=== PATIENT | male | born 1965 | race African-American/Black ===

== ENCOUNTER 2017-10-18 16:06 | Inpatient (IN) | payer OTHER ==
[~2017-10-18] VITALS: Ht 175.3 cm; Wt 141.5 kg
--- NOTE | 2017-10-18 16:29 | NUR ---
ADMISSION NOTE Patient admitted with diagnosis of Abcess on back/ DM. Patient oriented to hospital routine, call light, toileting and safety-patient verbalized understanding.
--- NOTE | 2017-10-18 16:52 | NUR ---
[phone] SPOKE WITH .
[2017-10-18 17:12] VITALS: BP_SYST 150
[2017-10-18] MEDS ORDERED: COMMUNICATION ORDER XX ONE (17:15)
[2017-10-18] MEDS ORDERED: FLU VACC QS 2017-18(36MOS+)/PF 0.5 ML/SYR SYRINGE I.M. PRN (17:30)
[2017-10-18] MEDS ORDERED: ALBUTEROL MDI INHALATION 8 GM INH INH SCH (17:30)
[2017-10-18] MEDS ORDERED: ACETAMINOPHEN 650 MG/20.3 ML UDC PO PRN (17:30)
[2017-10-18] MEDS ORDERED: ROSU10TA PO (17:50)
[2017-10-18] MEDS ORDERED: DULO30CA51 PO (17:50)
[2017-10-18] MEDS ORDERED: VIS50 PO (17:50)
[2017-10-18] MEDS ORDERED: INSU100V9 SUBCUT (17:50)
[2017-10-18] MEDS ORDERED: TRAZ-123 PO (17:50)
[2017-10-18] MEDS ORDERED: SILD100T PO (17:50)
[2017-10-18] MEDS ORDERED: AMLO5TAB4 PO (17:50)
[2017-10-18] MEDS ORDERED: CAT.1 PO (17:50)
[2017-10-18] MEDS ORDERED: UBID200C32 PO (17:50)
[2017-10-18] MEDS ORDERED: MULT PO (17:50)
[2017-10-18] MEDS ORDERED: ASPI-1063 PO (17:50)
[2017-10-18] MEDS ORDERED: CHOL200026 PO (17:50)
[2017-10-18] MEDS ORDERED: METO50TA7 PO (17:50)
[2017-10-18] MEDS ORDERED: NEU300 PO (17:50)
[2017-10-18] MEDS ORDERED: TYLL650 PO (17:50)
[2017-10-18] MEDS ORDERED: LOSA100T11 PO (17:50)
[2017-10-18] MEDS ORDERED: ALBU8.5H8 INH (17:50)
[2017-10-18] MEDS ORDERED: MULT-1055 PO (17:50)
[2017-10-18 17:55] LABS: BASOPHILS # (AUTO) 0.1 K/uL (0.0-0.2); BASOPHILS % (AUTO) 0.8 % (0.0-2.0); EOSINOPHILS # (AUTO) 0.6 K/uL (0.0-0.4); EOSINOPHILS % (AUTO) 5.8 % (0.0-4.0); HEMATOCRIT 45.5 % (36-54); HEMOGLOBIN 14.7 g/dL (14.0-18.0); LYMPHOCYTES # (AUTO) 4.2 K/uL (1.0-5.5); MEAN CORPUSCULAR HEMOGLOBIN 27 pg (27-31); MEAN CORPUSCULAR HGB CONC 32 % (32-36); MEAN CORPUSCULAR VOLUME 82 fL (79.0-98.0); MONOCYTES # (AUTO) 1.1 K/uL (0.0-1.0); MONOCYTES % (AUTO) 9.9 % (1.7-9.3); NEUTROPHILS # (AUTO) 4.7 K/uL (1.8-7.7); NEUTROPHILS % (AUTO) 44.5 % (40.0-70.0); PLATELET COUNT (AUTO) 433 K/uL (130-430); RED BLOOD CELL COUNT(AUTO) 5.55 MIL/uL (4.2-6.2); RED CELL DISTRIBUTION WIDTH 14.2 % (9.0-15.0); WHITE BLOOD COUNT (AUTO) 10.7 K/uL (4.8-10.8)
[2017-10-18] MEDS ORDERED: ACET325C PO (17:55)
[2017-10-18] MEDS ORDERED: TEST75GE TP (18:16)
[2017-10-18 18:20] LABS: CREATININE 1.15 mg/dL (0.55-1.30); POTASSIUM 3.7 mmol/L (3.5-5.1)
[2017-10-18] MEDS ORDERED: ALBUTEROL SULFATE 0.083% 2.5 MG/3 ML VIAL.NEB INH PRN (18:30)
[2017-10-18] MEDS: PIPERACILLIN/TAZOBACTAM 4.5 GM/ D5W 100 ML IV SCH ×2 (18:55)
--- NOTE | 2017-10-18 19:01 | NUR ---
CLOSING NOTE PATIENT RESTING IN BED, IV ANTIBIOTICS CURRENTLY HANGING, ALL NEEDS MET, WILL ENDORSE TO PUBLIC POLICY ANALYST NURSE TO HANG VANCO 19:00 DOSE, WILL ALSO ENDORSE PUBLIC POLICY ANALYST NURSE TO GET WOUND CULTURE, UNABLE TO GET DUE TO WOUND BEING CLEANED PRIOR TO ORDER BEING PUT IN, PATIENT IN STABLE CONDITION, CALL ROLON WITHIN REACH OF PATIENT, SIDE RAILS UP, FALL PRECAUTIONS IN PLACE.
--- NOTE | 2017-10-18 19:21 | NUR ---
RN OPENING NOTE Received report from TAMANNA Selby and TAMANNA Gross. Patient A&O x 4, cooperative. Patient resting in bed. Bed locked at lowest position. Call corey within reach. Re-oriented patient to use of call corey. Peripheral IV noted. Right AC 22 G, patent and benign. No S/S of discomfort, distress or pain noted.
[2017-10-18 19:53] VITALS: BP_SYST 146
[2017-10-18] MEDS: VANCOMYCIN HCL 1,750 MG in NS 250 ML IV SCH (20:05)
[2017-10-18 20:30] VITALS: BP_SYST 146
--- NOTE | 2017-10-18 20:57 | NUR ---
DR. HAIDER PAGED Paged Dr. Haider for orders for patient to take home medications. Patient does not want to take hospital pharmacy provided medications d/t fear of excessive costs.
[2017-10-18] MEDS ORDERED: GABAPENTIN 300 MG CAPSULE PO SCH (21:00)
[2017-10-18] MEDS ORDERED: INSULIN GLARGINE 100 UNITS/ML 10 ML VIAL SUBCUT SCH (21:00)
--- NOTE | 2017-10-18 21:06 | NUR ---
DR. BARGER ORDER TORB for patient to take own home medications.
[2017-10-18] MEDS ORDERED: traZODone HCL 50 MG TABLET (DESYREL) PO ONE (23:00)
[2017-10-19] VITALS (7 sets, daily range): BP systolic 123–141
--- NOTE | 2017-10-19 00:13 | NUR ---
RN ROUNDING Patient sleeping w/ home CPAP machine. No S/S of pain, distress, or discomfort noted.
[2017-10-19] MEDS: PIPERACILLIN/TAZOBACTAM 4.5 GM/ D5W 100 ML IV SCH ×10 (00:56→23:48)
--- NOTE | 2017-10-19 04:46 | NUR ---
RN ROUNDING Patient sleeping in bed w/ home CPAP machine. No C/O discomfort or distress noted.
[2017-10-19] MEDS: VANCOMYCIN HCL 1,750 MG in NS 250 ML IV SCH ×2 (06:16→20:44)
[2017-10-19] MEDS: INSULIN ASPART 100 UNITS/ML, 10 ML VIAL (NovoLOG) SUBCUT PRN ×3 (06:22→21:01)
--- NOTE | 2017-10-19 06:57 | NUR ---
RN CLOSING NOTE Patient A&O x 4, cooperative. Patient sleeping in bed but easily awoken by name or light stimuli. Bed locked at lowest position. Call corey within reach. Peripheral IV noted. Right AC 22 G, patent and benign. No S/S of discomfort, distress or pain noted. Wound culture of upper posterior abscess site taken and clean optifoam dressing placed. No drainage noted from site. Last AccuCheck, 177. Covered w/ 2 units of Novolog. Patient comfortable and sleeping w/ home CPAP machine.
--- NOTE | 2017-10-19 08:00 | NUR ---
RN ROUNDS PT RESTING IN BED, A/O X4 AND SPEAKS SPANISH. VS STABLE ON ROOM AIR, NO COMPLAINT OF PAIN. PT STATED CONCERN REGARDING THE COST OF THE MEDICATION PRESCRIBED, MD ORDERS ON ON FILE TO ALLOW HIM TO USE HIS HOME MEDS IF COMPATIBLE.
[2017-10-19] MEDS ORDERED: METOPROLOL SUCCINATE 50 MG TAB.SR.24H (TOPROL XL) PO SCH (09:00)
[2017-10-19] MEDS: ASPIRIN 81 MG TABLET(ECOTRIN) PO SCH (09:00)
[2017-10-19] MEDS: ATORVASTATIN 20 MG TABLET PO SCH (09:00)
[2017-10-19] MEDS: CHOLECALCIFEROL (VITAMIN D3) 2,000 UNIT TABLET PO SCH (09:00)
[2017-10-19] MEDS ORDERED: amLODIPine BESYLATE 5 MG TABLET PO SCH (09:00)
[2017-10-19] MEDS: LOSARTAN POTASSIUM 50 MG TABLET (COZAAR) PO SCH (09:00)
[2017-10-19] MEDS ORDERED: ROSUVASTATIN CALCIUM 5 MG/TAB (CRESTOR) PO SCH (09:00)
[2017-10-19] MEDS: cloNIDine HCL 0.1 MG TABLET PO SCH (09:00)
[2017-10-19] MEDS: MULTIVITAMINS TAB 1 TABLET PO SCH (09:00)
[2017-10-19] MEDS: DULoxetine HCL 30 MG CAPSULE.DR (CYMBALTA) PO SCH (09:00)
[2017-10-19] MEDS ORDERED: COMMUNICATION ORDER XX ONE (10:30)
--- NOTE | 2017-10-19 11:26 | NUR ---
AM MEDS DELAYED PER PT'S REQUEST PT WANTS TO KNOW THE COST OF EACH MED AND ALSO WANTS TO SUBSTITUTE HIS HOME MEDS FOR ANY COMPATIBLE MED PRESCRIBED DURING HIS HOSPITAL STAY. MEDS REFUSED UNTIL CLARIFICATION.
[2017-10-19] MEDS ORDERED: GABAPENTIN 300 MG CAPSULE PO ONE (12:00)
[2017-10-19] MEDS ORDERED: AMLODIPINE 5 MG TABLET PO ONE (12:00)
[2017-10-19] MEDS ORDERED: METOPROLOL SUCCINATE 50 MG PO ONE (12:15)
--- NOTE | 2017-10-19 12:45 | NUR ---
WOUND EVALUATION: Late note for 1245 secondary to patient care. Wound Consult received from Dr. Kurtis Cano. Thank you, Dr. Cano, for the consult. Patient received in a Ioana Bed with a mattress, awake, alert, and oriented. Patient is unable to turn independently. Shahriar Score is a 23. Past Medical History: Diabetes Mellitus, Abscess on back, prior abscess in Gluteal Sulcus area, probable Obstructive Sleep Apnea (has home CPAP). Recent Labs: WBC 10.7, RBC 5.55, hemoglobin 14.7, hematocrit 45.5, BUN 9, creatinine 1.15, GFR low, glucose 130. Intrinsic factors that delay wound healing: Diabetes mellitus. Extrinsic factors that delay wound healing: Decreased mobility. Microbiology: Blood culture results 2 in progress. Back abscess culture in progress. Wound Assessment: 1. Left Upper Back Abscess, present on admission. Abscess site (status post incision and drainage) incision is closed with 6 sutures, but has a small open area mid incision with mod sanguineous drainage draining, measuring 0.6 cm x 0.2 cm. Wound bed tissue is not visible. No odor. Nancie-wound intact. Recommend: Cleanse site with normal saline. Pat dry. Apply SurePrep to nancie-wound. Place alginate dressing over site. Cover with foam dressing. Perform wound care daily, and as needed for dressing soiling or dislodgement. Also recommend: Encourage and assist patient as needed with repositioning side to side only 2 hours with pillow support. Encourage patient not to lie flat on his back. Addendum: 10/19/17 at 1828 by Wyatt Sandoval RN Error, abscess has 10 sutures.
--- NOTE | 2017-10-19 12:45 | NUR ---
WOUND CARE ASSISTED WOUND CARE NURSE ROMAINE WITH CLEANING, MEASURING AND REDRESSING BACK WOUND
--- NOTE | 2017-10-19 13:30 | NUR ---
RN ROUNDS PT SITTING UP IN BED SPEAKING WITH HIS WHO IS AT BEDSIDE. PT STATED HE TOLERATED HIS LUNCH WELL WITH NO COMPLAINT OF PAIN.
[2017-10-19] MEDS: AMLODIPINE 5 MG TABLET PO SCH (13:37)
[2017-10-19] MEDS: TRAZODONE 50 MG TABLET PO SCH (13:38)
--- NOTE | 2017-10-19 15:00 | NUR ---
DR. BARGER AT BEDSIDE NEW ORDERS RECEIVED
--- NOTE | 2017-10-19 15:01 | NUR ---
PT OK TO SHOWER PRN DR. BARGER ENTERED ORDER TO ALLOW PT TO SHOWER. PT UPDATED AND PROVIDED SAFETY EDUCATION.
[2017-10-19] MEDS ORDERED: FLUCONAZOLE 200 MG TABLET (DIFLUCAN) PO ONE (15:15)
--- NOTE | 2017-10-19 17:00 | NUR ---
RN ROUNDS PT SITTING UP IN BED WATCHING A MOVIE ON HIS LAPTOP, AT BEDSIDE. NO COMPLAINT OF DISCOMFORT.
--- NOTE | 2017-10-19 19:00 | NUR ---
RN CLOSING NOTE PT SITTING UP IN BED WATCHING TV WITH HIS , WHO IS AT BEDSIDE. PT STATED ALL NEEDS HAVE BEEN MET DURING SHIFT, BUT HE ASKED THE PM NURSE IF HE COULD BE ESCORTED OUTSIDE TO SMOKE. REPORT ENDORSED TO TAMANNA BLOCK AT BEDSIDE.
[2017-10-19] MEDS: GABAPENTIN 300 MG CAPSULE PO SCH (20:46)
[2017-10-19] MEDS: DIPHENHYDRAMINE HCL/ZINC ACET 28.3 GM CREAM.GM. TP SCH (20:48)
[2017-10-19] MEDS: CLOTRIMAZOLE/BETAMET DIPROP 15 GM TUBE TP SCH (20:49)
[2017-10-19] MEDS ORDERED: traZODone HCL 50 MG TABLET (DESYREL) PO SCH (21:00)
[2017-10-19] MEDS ORDERED: CLOTRIMAZOLE 1% TOPICAL CREAM 15 GM TP SCH (21:00)
[2017-10-20 00:15] VITALS: BP_SYST 142
[2017-10-20 05:07] VITALS: BP_SYST 128
[2017-10-20] MEDS: PIPERACILLIN/TAZOBACTAM 4.5 GM/ D5W 100 ML IV SCH ×8 (06:23→23:34)
[2017-10-20] MEDS ORDERED: VANCOMYCIN HCL 1000 MG/VIAL IV ONE (06:25)
[2017-10-20] MEDS: INSULIN ASPART 100 UNITS/ML, 10 ML VIAL (NovoLOG) SUBCUT PRN ×4 (06:33→21:36)
[2017-10-20] MEDS: VANCOMYCIN HCL 1,750 MG in NS 250 ML IV SCH ×2 (06:41→18:05)
--- NOTE | 2017-10-20 07:36 | NUR ---
AM ROUNDS: No s/s of distress noted. Will continue to monitor.
[2017-10-20 08:23] VITALS: BP_SYST 119
[2017-10-20] MEDS: GABAPENTIN 300 MG CAPSULE PO SCH ×2 (08:24→21:33)
[2017-10-20] MEDS: METOPROLOL SUCCINATE 50 MG PO SCH (08:25)
[2017-10-20] MEDS: AMLODIPINE 5 MG TABLET PO SCH (08:26)
[2017-10-20] MEDS: DIPHENHYDRAMINE HCL/ZINC ACET 28.3 GM CREAM.GM. TP SCH ×3 (08:27→21:39)
[2017-10-20] MEDS: CLOTRIMAZOLE/BETAMET DIPROP 15 GM TUBE TP SCH ×2 (08:28→21:39)
[2017-10-20] MEDS: DULoxetine HCL 30 MG CAPSULE.DR (CYMBALTA) PO SCH (08:30)
[2017-10-20] MEDS: cloNIDine HCL 0.1 MG TABLET PO SCH (08:32)
[2017-10-20] MEDS: LOSARTAN POTASSIUM 50 MG TABLET (COZAAR) PO SCH (08:33)
[2017-10-20] MEDS: ATORVASTATIN 20 MG TABLET PO SCH (08:33)
[2017-10-20] MEDS: MULTIVITAMINS TAB 1 TABLET PO SCH (08:33)
[2017-10-20] MEDS: FLUCONAZOLE 200 MG TABLET (DIFLUCAN) PO SCH (08:33)
[2017-10-20] MEDS: ASPIRIN 81 MG TABLET(ECOTRIN) PO SCH (08:33)
[2017-10-20] MEDS: CHOLECALCIFEROL (VITAMIN D3) 2,000 UNIT TABLET PO SCH (08:33)
--- NOTE | 2017-10-20 10:07 | NUR ---
PATIENT RESTING: Patient resting quietly. No acute distress noted. Will continue to monitor.
[2017-10-20 11:35] VITALS: BP_SYST 133
--- NOTE | 2017-10-20 12:07 | NUR ---
PATIENT RESTING: Patient resting quietly. No acute distress noted. Will continue to monitor.
--- NOTE | 2017-10-20 14:35 | NUR ---
Dietitian Recommendation *Recommend CCHO 2gm Na diet.
[2017-10-20 15:16] VITALS: BP_SYST 147
--- NOTE | 2017-10-20 16:09 | NUR ---
PATIENT RESTING: Patient resting quietly. No acute distress noted. Will continue to monitor.
--- NOTE | 2017-10-20 18:09 | NUR ---
CLOSING NOTE: All needs met. No change in assessment. Will endorse to NOC shift nurse.
[2017-10-20 20:00] VITALS: BP_SYST 134
--- NOTE | 2017-10-20 20:07 | NUR ---
PM Opening Notes Received patient on bed awake, alert and verbally responsive with at bedside watching movie on his laptop at this time. No sign of respiratory distress and no complain of pain or discomfort at this time. IV site on left hand is intact with no s/sx. of infiltration at this time. Will continue to monitor. Call light within reach.
[2017-10-20] MEDS: TRAZODONE 50 MG TABLET PO SCH (21:32)
[2017-10-21] VITALS (7 sets, daily range): BP systolic 114–135
--- NOTE | 2017-10-21 00:05 | NUR ---
Rounds Notes Patient on bed sleeping with no sign of respiratory distress and no complain of pain at this time. IV ATB infusing well. Will continue to monitor. Call light within reach.
--- NOTE | 2017-10-21 04:34 | NUR ---
Rounds Notes Patient on bed sleeping with no sign of respiratory distress and no complain of pain at this time. Will continue to monitor. Call light within reach.
[2017-10-21] MEDS: PIPERACILLIN/TAZOBACTAM 4.5 GM/ D5W 100 ML IV SCH ×6 (05:13→17:09)
[2017-10-21 06:20] LABS: BASOPHILS # (AUTO) 0.1 K/uL (0.0-0.2); BASOPHILS % (AUTO) 0.8 % (0.0-2.0); EOSINOPHILS # (AUTO) 0.3 K/uL (0.0-0.4); EOSINOPHILS % (AUTO) 3.5 % (0.0-4.0); HEMATOCRIT 41.8 % (36-54); HEMOGLOBIN 13.7 g/dL (14.0-18.0); LYMPHOCYTES # (AUTO) 2.6 K/uL (1.0-5.5); MEAN CORPUSCULAR HEMOGLOBIN 27 pg (27-31); MEAN CORPUSCULAR HGB CONC 33 % (32-36); MEAN CORPUSCULAR VOLUME 82 fL (79.0-98.0); MONOCYTES # (AUTO) 0.8 K/uL (0.0-1.0); MONOCYTES % (AUTO) 8.2 % (1.7-9.3); NEUTROPHILS # (AUTO) 5.4 K/uL (1.8-7.7); NEUTROPHILS % (AUTO) 59.5 % (40.0-70.0); PLATELET COUNT (AUTO) 370 K/uL (130-430); RED CELL DISTRIBUTION WIDTH 14.1 % (9.0-15.0); WHITE BLOOD COUNT (AUTO) 9.2 K/uL (4.8-10.8)
[2017-10-21] MEDS: VANCOMYCIN HCL 1,750 MG in NS 250 ML IV SCH (06:28)
[2017-10-21] MEDS: INSULIN ASPART 100 UNITS/ML, 10 ML VIAL (NovoLOG) SUBCUT PRN ×3 (06:30→17:06)
--- NOTE | 2017-10-21 06:45 | NUR ---
pt.presents stable status,pt.is independent w/ adl's.pt.presents aloc x4.pt.ambulatory. pt.presents active smoking hx.pt.requested accompaniment to patio to smoke.i accompanied the pt.in company w/ to patio. estimated time was approximately 20mins outside.pt.was accompanied to return room safely.pt.presents infiltrated iv access i re established iv site:location:,.hand:24g.i continued w/ the administration of abx:zosyn,vancomycin. pt.presents stable vs values.pt.presented no c/o pain,nausea.snacks were offered throughout the night. pt.presents c-pap.pt.able to adjusted settings;pt's personal belongings.
[2017-10-21 06:54] LABS: ALBUMIN 3.2 g/dL (3.4-4.8); CALCIUM 8.7 mg/dL (8.4-11.0); CREATININE 1.29 mg/dL (0.55-1.30); POTASSIUM 4.2 mmol/L (3.5-5.1); TOTAL BILIRUBIN 0.4 mg/dL (0.0-1.0)
--- NOTE | 2017-10-21 06:56 | NUR ---
Closing Notes Patient on bed sleeping with no sign of respiratory distress and no complain of pain at this time. No s/sx. of hyperglycemia and IV ATB infusing well at this time. All needs attended and met by staff. Call light within reach.
--- NOTE | 2017-10-21 07:28 | NUR ---
AM ROUNDS: No s/s of distress noted. Will continue to monitor.
[2017-10-21] MEDS: CLOTRIMAZOLE/BETAMET DIPROP 15 GM TUBE TP SCH (08:21)
[2017-10-21] MEDS: DIPHENHYDRAMINE HCL/ZINC ACET 28.3 GM CREAM.GM. TP SCH ×2 (08:21→14:06)
[2017-10-21] MEDS: DULoxetine HCL 30 MG CAPSULE.DR (CYMBALTA) PO SCH (08:22)
[2017-10-21] MEDS: cloNIDine HCL 0.1 MG TABLET PO SCH (08:22)
[2017-10-21] MEDS: MULTIVITAMINS TAB 1 TABLET PO SCH (08:23)
[2017-10-21] MEDS: LOSARTAN POTASSIUM 50 MG TABLET (COZAAR) PO SCH (08:23)
[2017-10-21] MEDS: ATORVASTATIN 20 MG TABLET PO SCH (08:23)
[2017-10-21] MEDS: FLUCONAZOLE 200 MG TABLET (DIFLUCAN) PO SCH (08:23)
[2017-10-21] MEDS: AMLODIPINE 5 MG TABLET PO SCH (08:23)
[2017-10-21] MEDS: GABAPENTIN 300 MG CAPSULE PO SCH (08:23)
[2017-10-21] MEDS: ASPIRIN 81 MG TABLET(ECOTRIN) PO SCH (08:23)
[2017-10-21] MEDS: CHOLECALCIFEROL (VITAMIN D3) 2,000 UNIT TABLET PO SCH (08:24)
[2017-10-21] MEDS: METOPROLOL SUCCINATE 50 MG PO SCH (08:24)
--- NOTE | 2017-10-21 10:07 | NUR ---
PATIENT RESTING: Patient resting quietly. No acute distress noted. Will continue to monitor.
--- NOTE | 2017-10-21 12:17 | NUR ---
PATIENT RESTING: Patient resting quietly. No acute distress noted. Will continue to monitor.
--- NOTE | 2017-10-21 14:00 | NUR ---
PATIENT RESTING: Patient resting quietly. No acute distress noted. Will continue to monitor.
--- NOTE | 2017-10-21 16:01 | NUR ---
PATIENT RESTING: Patient resting quietly. No acute distress noted. Will continue to monitor.
--- NOTE | 2017-10-21 18:28 | NUR ---
D/C Patient Patient given medication reconciliation form and D/C instructions. Exit Care provided. Patient verbalized understanding. MD discussed with patient the results and treatment provided. Ambulatory with steady gait for discharge to home. Patient in stable condition, ID band removed. IV catheter removed, intact and dressing applied, no active bleeding. Rx of augmentin given. Patient educated on pain management. All belongings sent with patient.
== END 2017-10-21 18:40 | disposition home or self-care (01) | DRG 863 ==
LOC: SMU 16:06
PROVIDERS: ADMIT Family Medicine; ATTEND Family Medicine
DX: T81.4XXA Infection following a procedure, initial encounter (principal); L02.212 Cutaneous abscess of back [any part, except buttock and flank]; B36.9 Superficial mycosis, unspecified; E11.9 Type 2 diabetes mellitus without complications; E78.5 Hyperlipidemia, unspecified; I10 Essential (primary) hypertension; L03.312 Cellulitis of back [any part except buttock and flank]; Y83.8 Other surgical procedures as the cause of abnormal reaction of the patient, or of later complication, without mention of misadventure at the time of the procedure; Y92.89 Other specified places as the place of occurrence of the external cause
CPT/HCPCS: 36415; 71010; 80048; 80053; 82962; 85025; 87040-TC; 87070-TC; 87075-TC; 94640; J1815; J2543; J3370; J7050; J7060